=== PATIENT | male | born 1985 | race Caucasian/White ===

== ENCOUNTER 2021-07-29 19:30 | Outpatient (CLI) | payer OTHER | END 2021-07-29 19:31 | disposition home or self-care (01) | LOC: SLEEPLAB 19:30 | PROVIDERS: ATTEND Family Medicine | DX: G47.33 Obstructive sleep apnea (adult) (pediatric) (principal); G47.10 Hypersomnia, unspecified; G47.9 Sleep disorder, unspecified; R51.9 Headache, unspecified; R06.83 Snoring; R53.83 Other fatigue; F41.9 Anxiety disorder, unspecified; G47.00 Insomnia, unspecified; F32.9 Major depressive disorder, single episode, unspecified; G47.63 Sleep related bruxism | CPT/HCPCS: 95810 ==

== ENCOUNTER 2022-10-03 19:00 | Outpatient (CLI) | payer OTHER | END 2022-10-03 19:01 | disposition home or self-care (01) | LOC: SLEEPLAB 19:00 | PROVIDERS: ATTEND Internal Medicine Pulmonary Disease | DX: G47.419 Narcolepsy without cataplexy (principal); R53.83 Other fatigue; R06.83 Snoring; F41.9 Anxiety disorder, unspecified; G47.10 Hypersomnia, unspecified; F32.A Depression, unspecified; I10 Essential (primary) hypertension; G47.00 Insomnia, unspecified | CPT/HCPCS: 95810 ==